=== PATIENT | female | born 1950 | race Caucasian/White ===

== ENCOUNTER 2016-08-16 09:01 | Day surgery (SDC) | payer MEDICARE, OTHER ==
[~2016-08-16] VITALS: Ht 165.1 cm; Wt 95.5 kg
[2016-08-16] VITALS (7 sets, daily range): BP systolic 101–191; BP diastolic 58–100; PULSE 80–109; RESP 18–20; TEMP 98.1–98.4; O2SAT 94–97
[2016-08-16] MEDS ORDERED: ANAS1TAB PO (09:23)
[2016-08-16] MEDS ORDERED: APPL300T PO (09:23)
[2016-08-16] MEDS ORDERED: METF500T PO (09:23)
[2016-08-16] MEDS ORDERED: FERR1TAB36 PO (09:23)
[2016-08-16] MEDS ORDERED: CALC600T10 PO (09:23)
[2016-08-16] MEDS ORDERED: ROPI0.25 PO (09:23)
[2016-08-16] MEDS ORDERED: LANS30CA PO (09:23)
[2016-08-16] MEDS ORDERED: FIBECAP2 PO (09:23)
[2016-08-16] MEDS ORDERED: BIOT1SUB PO (09:23)
[2016-08-16] MEDS ORDERED: MAGN-23 PO (09:23)
[2016-08-16] MEDS ORDERED: SODIUM CHLOR 0.9% 1000 ML INJ 1,000 ML IV SCH (09:45)
[2016-08-16] MEDS ORDERED: LIDOCAINE 1%/EPINEPHrine 1:100,000 SOLN 20 ML VIAL ONE (11:37)
[2016-08-16] MEDS ORDERED: MIDAZOLAM HCL 5 MG/5 ML VIAL ONE (11:49)
[2016-08-16] MEDS ORDERED: fentaNYL CITRATE 250 MCG/5 ML AMP ONE (11:49)
--- NOTE | 2016-08-16 12:50 | RADRPT ---
EXAM DATE/TIME: 08/16/2016 11:57 [place] COMPARISON: No previous studies available for comparison. INDICATIONS : Elevated liver enzymes SEDATION TIME: 15 minutes BIOPSY SITE: liver MEDICATION(S): 1.) 3 mg midazolam (Versed) IV 2.) 150 mcg fentanyl (Sublimaze) IV DEVICE(S): 1.) 18 gauge BioPince needle MEDICAL HISTORY : None. SURGICAL HISTORY : None. ENCOUNTER: Initial ACUITY: 1 day PAIN SCORE: 0/10 LOCATION: Right upper quadrant A total of one core specimen(s) were obtained and sent to the laboratory for pathologic evaluation. PROCEDURE: 1. CT guided liver biopsy. 2. Conscious sedation with continuous EKG and oximetry monitoring. 3. EKG and oximetry remained stable throughout the procedure. Prior to the procedure informed consent was obtained. Any appropriate prior imaging studies were rev iewed. The site was prepped in a sterile fashion. Full sterile technique was used, including cap, mask, margaret rile gloves and gown and a large sterile sheet. Hand hygiene and 2% chlorhexidine and/or betadine/al cohol prep was utilized per protocol for cutaneous antisepsis. The skin and subcutaneous tissues wer e infiltrated with local anesthetic solution. With CT guidance the previously identified target was localized. Biopsy was performed using the presc ribed needle as above. Adequate hemostasis was obtained with compression at the puncture site. Follow-up CT scan reveals no hemorrhage. The patient tolerated the procedure well and there were no complications. The patient was returned to the Radiology Outpatient Unit in stable condition. CONCLUSION: Uncomplicated CT guided biopsy. Simon England MD FACR on August 16, 2016 at 12:49 Board Certified Radiologist. This report was verified electronically.
== END 2016-08-16 16:23 | disposition home or self-care (01) ==
LOC: HRAD 09:01 → HRIP 09:03 → HRAD 16:23
DX: R74.8 Abnormal levels of other serum enzymes (principal)
CPT/HCPCS: 47000; 77012; 88307; 88313; J2250; J3010; J7030